=== PATIENT | female | born 1955 | race Caucasian/White ===

== ENCOUNTER → 2017-08-22 | Outpatient (CLI) | payer BC | LOC: HYPER 07:13 | DX: S61.401A Unspecified open wound of right hand, initial encounter (principal); S71.101A Unspecified open wound, right thigh, initial encounter; S81.801A Unspecified open wound, right lower leg, initial encounter; Y93.89 Activity, other specified; Y99.8 Other external cause status; Y92.89 Other specified places as the place of occurrence of the external cause; X58.XXXA Exposure to other specified factors, initial encounter ==

== ENCOUNTER → 2017-08-31 | Outpatient (CLI) | payer BC | LOC: HYPER 06:41 | DX: S81.811A Laceration without foreign body, right lower leg, initial encounter (principal); S51.811A Laceration without foreign body of right forearm, initial encounter; S61.411D Laceration without foreign body of right hand, subsequent encounter; S71.111D Laceration without foreign body, right thigh, subsequent encounter; X58.XXXD Exposure to other specified factors, subsequent encounter; X58.XXXA Exposure to other specified factors, initial encounter; Y93.89 Activity, other specified; Y92.89 Other specified places as the place of occurrence of the external cause; Y99.8 Other external cause status ==

== ENCOUNTER → 2017-09-14 | Outpatient (CLI) | payer BC | LOC: HYPER 06:27 | DX: S61.411D Laceration without foreign body of right hand, subsequent encounter (principal); S71.111D Laceration without foreign body, right thigh, subsequent encounter; S81.811D Laceration without foreign body, right lower leg, subsequent encounter; S51.811D Laceration without foreign body of right forearm, subsequent encounter; X58.XXXD Exposure to other specified factors, subsequent encounter ==